=== PATIENT | female | born 1945 | race Two or more races ===

== ENCOUNTER → 2017-10-18 | Outpatient (CLI) | payer OTHER | END | disposition home or self-care (01) | LOC: SONOGRAMA 09:41 | DX: C73 Malignant neoplasm of thyroid gland (principal) ==

== ENCOUNTER 2021-11-29 07:50 | Outpatient (CLI) | payer OTHER | END 2021-11-29 07:52 | disposition home or self-care (01) | LOC: NUCLEAR 07:50 | DX: R60.1 Generalized edema (principal) ==

== ENCOUNTER → 2021-11-29 | Outpatient (CLI) | payer OTHER | END | disposition home or self-care (01) | LOC: SONOGRAMA 08:48 | DX: E11.21 Type 2 diabetes mellitus with diabetic nephropathy (principal); I10 Essential (primary) hypertension ==